=== PATIENT | male | born 1980 | race Caucasian/White ===

== ENCOUNTER 2022-02-06 04:31 | Emergency (ER) | payer BC ==
[~2022-02-06] VITALS: Ht 177.8 cm; Wt 99.3 kg
[2022-02-06 04:40] VITALS: BP 153/88
[2022-02-06 08:56] LABS: HEPATITIS B SURFACE ANTIGEN NEGATIVE
== END 2022-02-06 07:24 | disposition home or self-care (01) ==
LOC: ER 04:31
DX: S60.812A Abrasion of left wrist, initial encounter (principal); X58.XXXA Exposure to other specified factors, initial encounter; Y93.89 Activity, other specified; Y92.89 Other specified places as the place of occurrence of the external cause; Y99.8 Other external cause status
CPT/HCPCS: 36415; 99283